=== PATIENT | female | born 1980 | race Two or more races ===

== ENCOUNTER 2016-10-17 23:43 | Emergency (ER) | payer OTHER ==
--- NOTE | 2016-10-18 00:39 | PDOC ---
History of Present Illness - General Chief Complaint: Vaginal Bleeding Stated Complaint: VAGINAL BLEEDING/ Time Seen by Provider: 10/18/16 00:25 History Source: Patient Exam Limitations: No Limitations - History of Present Illness Initial Comments: CHIEF COMPLAINT: 36 y/o female of unknown duration c/o vaginal bleeding x 2 weeks. HISTORY OF PRESENT ILLNESS: The patient states she had a regular period in august. She states in September she thought she got a normal period but continued bleeding for 2 weeks and is now passing clots. She took a test and it was positive. She denies all other symptoms. REVIEW OF SYSTEMS: GENERAL/CONSTITUTIONAL: No fever/chills. No weakness. No weight change. HEAD, EYES, EARS, NOSE AND THROAT: No change in vision. No ear pain or discharge. No sore throat. CARDIOVASCULAR: No chest pain or shortness of breath. RESPIRATORY: No cough, wheezing, or hemoptysis. GASTROINTESTINAL: No abd pain, nausea, vomiting, diarrhea. +vaginal bleeding GENITOURINARY: No dysuria, frequency, or change in urination. MUSCULOSKELETAL: No joint or muscle swelling or pain. No neck or back pain. SKIN: No rash or easy bruising. NEUROLOGIC: No headache, vertigo, loss of consciousness, or loss of sensation. PHYSICAL EXAM: GENERAL: The patient is awake, alert, and fully oriented, in no acute distress. HEAD: Normal with no signs of trauma. ENT: Pupils equal, round and reactive to light, extraocular movements intact, sclera anicteric, conjunctiva clear. Neck supple. LUNGS: Clear to auscultation bilaterally. Normal excursion. No respiratory distress or use of accessory muscles. CV: RRR, S1/S2, no MRG. Cap refill < 2 sec. ABDOMEN: Soft, non-distended, non-tender even to deep palpation, no hepatomegaly or splenomegaly, no masses. VAGINAL: DEFERRED EXTREMITIES: Normal range of motion, no edema. NEUROLOGICAL: Normal speech, normal gait. CN II-XII grossly intact. PSYCH: Normal mood, normal affect. SKIN: Warm, dry, normal turgor, no rashes or lesions noted. Past History - Past Medical History Allergies/Adverse Reactions: Allergies Allergy/AdvReac Type Severity Reaction Status Date / Time No Known Allergies Allergy Verified 12/28/14 13:33 Home Medications: Ambulatory Orders Ferrous Sulfate [Feosol] 325 mg PO BID 12/28/14 Vit/Iron Fumarate/FA [ Tablet] 1 each PO DAILY 12/28/14 Acetaminophen [Tylenol .Regular Strength -] 650 mg PO Q3H PRN #0 tablet Ibuprofen [Motrin -] 600 mg PO Q4H PRN #0 tablet 12/30/14 Asthma: No Cancer: No Cardiac Disorders: No Diabetes: No HTN: No Seizures: No Thyroid Disease: No - Psycho/Social/Smoking Cessation Hx Smoking History: Current every day smoker Have you smoked in the past 12 months: Yes Number of Cigarettes Smoked Daily: 10 Hx Alcohol Use: No Drug/Substance Use Hx: No Hx Substance Use Treatment: No ED Treatment Course - LABORATORY CBC & Chemistry Diagram: 10/18/16 00:27 Medical Decision Making - Medical Decision Making A/P: 36 y/o afebrile female who is with vaginal bleeding. Plan is as follows: 1. labs 2. UA 3. ultrasound Beta - 13,000 Transvaginal ultrasound IMPRESSION: Early IUP prior to visualization of pole. Small subchorionic bleed. Nonvisualization of the left ovary. Recommend follow up sonography with correlation to HCG levels to ensure viability. Prior type and screens resulted in O+ blood. UA negative for UTI Will discharge to home ih instructions to f/u with [facility] as soon as possible for follow up. The patient verbalizes understanding of all instructions, has no further questions and is awaiting discharge. *DC/Admit/Observation/Transfer Diagnosis at time of Disposition: Vaginal bleeding before 22 weeks gestation - Discharge Dispostion Disposition: HOME Condition at time of disposition: Good - Referrals Referrals: Yfn Jesus MD [Staff Physician] - - Patient Instructions Printed Discharge Instructions: DI for Vaginal Bleeding During Additional Instructions: Discharge Instructions: -Follow up with the referred [facility] (or your [facility]) as soon as possible -Return to the ER with any worsening or concerning symptoms
[2016-10-18 00:40] VITALS: BP 140/80; PULSE 82; TEMP 98.2; BMI 41.1
[2016-10-18 00:47] LABS: MCH 26.7 pg (25.7-33.7); MCHC 33.7 g/dl (32.0-36.0); MEAN CELL VOLUME 79.1 fl (80-96); MEAN PLT VOLUME 8.3 fl (7.5-11.1); PLATELET COUNT 397 K/MM3 (134-434); RDW 17.7 % (11.6-15.6)
[2016-10-18 02:08] LABS: URINE APPEARANCE CLEAR; URINE BILIRUBIN NEGATIVE (NEGATIVE); URINE COLOR YELLOW; URINE GLUCOSE (UA) NEGATIVE (NEGATIVE); URINE KETONE NEGATIVE (NEGATIVE); URINE LEUK ESTERASE NEGATIVE (NEGATIVE); URINE NITRITE NEGATIVE (NEGATIVE); URINE UROBILINOGEN NEGATIVE E.U./dl (0.2-1.0)
[2016-10-18 02:28] LABS: URINE BLOOD 3+ (NEGATIVE); URINE PROTEIN 1+ (NEGATIVE)
[2016-10-18 03:30] LABS: URINE MUCUS RARE; URINE RBC 1246 /hpf (0-3); URINE WBC 12 /hpf (3-5)
== END 2016-10-18 02:40 | disposition home or self-care (01) ==
LOC: JER 23:43
DX: O20.8 Other hemorrhage in early pregnancy (principal); Z3A.01 Less than 8 weeks gestation of pregnancy
CPT/HCPCS: 36415; 76817-TC; 81003; 81015; 84702; 85027; 86850; 86900; 86901; 99282-25

== ENCOUNTER 2017-06-21 16:00 | Emergency (ER) | payer OTHER ==
[2017-06-21 16:27] VITALS: BMI 32.4
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
[2017-06-21] MEDS ORDERED: ACETAMINOPHEN 1000 MG/100 ML VIAL (NON FORMULARY) IVPB ONE (17:32)
[2017-06-21] MEDS ORDERED: ACETAMINOPHEN INJECTION 100 ML IVPB ONE (17:53)
[2017-06-21 20:24] VITALS: BP 108/77; PULSE 78; TEMP 98.7
== END 2017-06-21 22:53 | disposition home or self-care (01) ==
LOC: JER 16:00
PROC: 3E033NZ Introduction of Analgesics, Hypnotics, Sedatives into Peripheral Vein, Percutaneous Approach (ICD-10-PCS; principal; 2017-06-21)
DX: O99.89 Other specified diseases and conditions complicating pregnancy, childbirth and the puerperium (principal); S49.82XA Other specified injuries of left shoulder and upper arm, initial encounter; S69.82XA Other specified injuries of left wrist, hand and finger(s), initial encounter; V09.20XA Pedestrian injured in traffic accident involving unspecified motor vehicles, initial encounter; Y92.414 Local residential or business street as the place of occurrence of the external cause; Y93.01 Activity, walking, marching and hiking; Y99.8 Other external cause status; Z3A.12 12 weeks gestation of pregnancy
CPT/HCPCS: 72141-TC; 73060-TC-LT; 73110-TC-LT; 73721-LT-TC; 76801-TC; 99284-25